=== PATIENT | female | born 1985 | race Asian ===

== ENCOUNTER 2018-12-28 16:15 | Emergency (ER) | payer BC ==
[~2018-12-28] VITALS: Ht 165.1 cm; Wt 127.0 kg
[2018-12-28 19:20] VITALS: BP 142/88; TEMP 98.4
== END 2018-12-28 19:20 | disposition home or self-care (01) ==
LOC: ED 16:15
DX: M79.18 Myalgia, other site (principal); R10.9 Unspecified abdominal pain
CPT/HCPCS: 81000; 99283